=== PATIENT | female | born 1995 | race Caucasian/White ===

== ENCOUNTER 2020-10-01 18:38 | Emergency (ER) | payer OTHER ==
[2020-10-01] MEDS ORDERED: SODIUM CHLORIDE 0.9% 1,000 ML IV STA (18:47)
[2020-10-01 19:13] LABS: BASOPHILS # (AUTO) 0.1 10^3/uL (0.0-0.1); BASOPHILS % (AUTO) 0.7 %; EOSINOPHILS # (AUTO) 0.3 10^3/uL (0.0-0.7); EOSINOPHILS % (AUTO) 3.9 %; HGB - HEMOGLOBIN 12.1 g/dL (12.0-16.0); LYMPHOCYTES # (AUTO) 2.3 10^3/uL (1.5-3.5); LYMPHOCYTES % (AUTO) 26.4 %; MEAN CORPUSCULAR HEMOGLOBIN 30.2 pg (27.0-31.0); MEAN CORPUSCULAR HGB CONC 35.6 g/dL (32.0-36.0); MEAN CORPUSCULAR VOLUME 84.8 fL (81.0-99.0); MEAN PLATELET VOLUME 10.3 fL (7.9-10.8); MONOCYTES # (AUTO) 0.8 10^3/uL (0.0-1.0); MONOCYTES % (AUTO) 9.8 %; NEUTROPHILS # (AUTO) 5.1 10^3/uL (1.5-6.6); PLT - PLATELET COUNT 313 10^3/uL (130-450); RED BLOOD COUNT 4.01 10^6/uL (4.20-5.40); RED CELL DISTRIBUTION WIDTH 12.4 % (12.0-15.0); WHITE BLOOD COUNT 8.6 x10^3/uL (4.8-10.8)
[2020-10-01 19:23] LABS: INR 1.2 (0.8-1.2); PT - PROTHROMBIN TIME 12.8 secs (9.9-12.6)
[2020-10-01 19:29] LABS: ALBUMIN 4.5 g/dL (3.2-5.5); ALBUMIN/GLOBULIN RATIO 1.4 (1.0-2.2); BILIRUBIN,TOTAL 0.5 mg/dL (0.2-1.0); CALCIUM 9.6 mg/dL (8.5-10.3); CREATININE 0.7 mg/dL (0.4-1.0); POTASSIUM 3.8 mmol/L (3.5-5.0); TOTAL PROTEIN 7.7 g/dL (6.7-8.2)
[2020-10-01 19:31] LABS: PARTIAL THROMBOPLASTIN TIME 29.9 secs (24.9-33.3)
[2020-10-01 19:33] LABS: BILIRUBIN,URINE NEGATIVE (NEGATIVE); GLUCOSE, URINE (UA) NEGATIVE (NEGATIVE); KETONES,URINE (UA) NEGATIVE (NEGATIVE); LEUKOCYTE ESTERASE, URINE NEGATIVE (NEGATIVE); NITRITE,URINE NEGATIVE (NEGATIVE); OCCULT BLOOD,URINE LARGE (NEGATIVE); PH,URINE 8.5 PH (5.0-7.5); PROTEIN,URINE NEGATIVE (NEGATIVE); UROBILINOGEN,URINE 0.2 (NORMAL) E.U./dL (NORMAL)
[2020-10-01 19:34] LABS: CLARITY,URINE CLOUDY (CLEAR)
--- NOTE | 2020-10-01 19:36 | ED Physician Documentation ---
History of Present Illness - Stated complaint Stated Complaint: FEMALE ,NAUSEA - Chief complaint Chief Complaint: Abd Pain - History obtained from History obtained from: Patient - History of Present Illness Timing: How many days ago (3) Pain level max: 4 Pain level now: 3 - Additonal information Additional information: Patient is a 25-year-old female who presents to the emergency department with pelvic cramping and heavier menstrual flow than usual. She states she started her period about 3 days ago, but this has been heavier bleeding than she is used to. Nothing makes it better or worse. She is unsure if she could possibly be . She states her menses last month was normal. Is not on any me dications at home. Is not on control. Patient states that she felt lightheaded and dizzy earlier today. Review of Systems Constitutional: denies: Fever, Chills Cardiac: denies: Chest pain / pressure Respiratory: denies: Cough GI: denies: Nausea, Vomiting : denies: Dysuria, Frequency, Hesitancy, Now EGA Skin: denies: Rash Musculoskeletal: denies: Neck pain, Back pain Neurologic: denies: Headache PD PAST MEDICAL HISTORY - Past Medical History Past Medical History: No - Past Surgical History Past Surgical History: No - Allergies Allergies/Adverse Reactions: Allergies Allergy/AdvReac Type Severity Reaction Status Date / Time shellfish derived Allergy Itching Verified 10/01/20 18:46 - Living Situation Living Situation: reports: With family Living Arrangement: reports: At home - Social History Does the pt smoke?: No Smoking Status: Never smoker Does the pt drink ETOH?: No Does the pt have substance abuse?: No - Immunizations Immunizations are current?: Yes - POLST Patient has POLST: No PD ED PE NORMAL - Vitals Vital signs reviewed: Yes - General General: Alert and oriented X 3, No acute distress, Well developed/nourished - HEENT HEENT: PERRL, Moist mucous membranes - Neck Neck: Supple, no meningeal sign - Cardiac Cardiac: RRR, Strong equal pulses - Respiratory Respiratory: No respiratory distress, Clear bilaterally - Abdomen Abdomen: Soft, Non tender, Non distended - Female Female : Pt declined - Derm Derm: Warm and dry - Extremities Extremities: No edema, No calf tenderness / cord - Neuro Neuro: Alert and oriented X 3 - Psych Psych: Normal mood, Normal affect Results - Vitals Vitals: Vital Signs - 24 hr 10/01/20 10/01/20 10/01/20 18:40 18:45 21:02 Temperature 36.2 C L 36.5 C 37.7 C Heart Rate 107 H 107 H 81 Respiratory 24 24 16 Rate Blood Pressure 167/93 H 167/93 H 151/88 H O2 Saturation 98 98 99 Oxygen O2 Source Room air - Labs Labs: Laboratory Tests 10/01/20 10/01/20 10/01/20 15:50 19:06 19:06 WBC 8.6 RBC 4.01 L Hgb 12.1 Hct 34.0 L MCV 84.8 MCH 30.2 MCHC 35.6 RDW 12.4 Plt Count 313 MPV 10.3 Neut # (Auto) 5.1 Lymph # (Auto) 2.3 Stephenson # (Auto) 0.8 Eos # (Auto) 0.3 Baso # (Auto) 0.1 Absolute Nucleated RBC 0.00 Nucleated RBC % 0.0 PT INR APTT Sodium 141 Potassium 3.8 Chloride 108 Carbon Dioxide 25 Anion Gap 8.0 BUN 9 Creatinine 0.7 Estimated GFR (MDRD) 100 Glucose 102 H Calcium 9.6 Total Bilirubin 0.5 AST 27 ALT 45 Alkaline Phosphatase 38 L Total Protein 7.7 Albumin 4.5 Globulin 3.2 Albumin/Globulin Ratio 1.4 Lipase 27 HCG, Quant Urine Color STRAW Urine Clarity CLOUDY Urine pH 8.5 H Ur Specific [place] 1.015 Urine Protein NEGATIVE Urine Glucose (UA) NEGATIVE Urine Ketones NEGATIVE Urine Occult Blood LARGE H Urine Nitrite NEGATIVE Urine Bilirubin NEGATIVE Urine Urobilinogen 0.2 (NORMAL) Ur Leukocyte Esterase NEGATIVE Urine RBC 11-25 H Urine WBC 0-3 Ur Squamous Epith Cells NONE SEEN Amorphous Sediment Marked Urine Bacteria None Seen Ur Microscopic Review INDICATED Urine Culture Comments NOT INDICATED Blood Type Antibody Screen 10/01/20 10/01/20 10/01/20 19:06 19:06 19:06 WBC RBC Hgb Hct MCV MCH MCHC RDW Plt Count MPV Neut # (Auto) Lymph # (Auto) Stephenson # (Auto) Eos # (Auto) Baso # (Auto) Absolute Nucleated RBC Nucleated RBC % PT 12.8 H INR 1.2 APTT 29.9 Sodium Potassium Chloride Carbon Dioxide Anion Gap BUN Creatinine Estimated GFR (MDRD) Glucose Calcium Total Bilirubin AST ALT Alkaline Phosphatase Total Protein Albumin Globulin Albumin/Globulin Ratio Lipase HCG, Quant < 0.60 Urine Color Urine Clarity Urine pH Ur Specific [place] Urine Protein Urine Glucose (UA) Urine Ketones Urine Occult Blood Urine Nitrite Urine Bilirubin Urine Urobilinogen Ur Leukocyte Esterase Urine RBC Urine WBC Ur Squamous Epith Cells Amorphous Sediment Urine Bacteria Ur Microscopic Review Urine Culture Comments Blood Type A NEGATIVE Antibody Screen NEGATIVE - Rads (name of study) Pelvic ultrasound Radiology: Prelim report reviewed, EMP read contemporaneously, See rad report (Per the sonographers oral report, no acute abnormality, possible polycystic ovary disease.) PD MEDICAL DECISION MAKING - ED course Complexity details: reviewed results, re-evaluated patient, considered differential, d/w patient ED course: Patient with menorrhagia. No significant lab abnormalities. Bleeding decreased in the emergency department. Discussed treatment including oral contraceptive pills, tranexamic acid or watchful waiting. Patient states she does not want to be started on any medications. She will return if she worsens. She will follow up with gynecology on Saturday. Patient counseled regarding signs and symptoms for which I believe and urgent re-evaluation would be necessary. Patient with good understanding of and agreement to plan and is comfortable going home at this time This document was made in part using voice recognition software. While efforts are made to proofread this document, sound alike and grammatical errors may occur. Departure - Departure Disposition: 01 Home, Self Care Clinical Impression: Menorrhagia Qualifiers: Menorrhagia type: with regular cycle Qualified Code(s): N92.0 - Excessive and frequent menstruation with regular cycle Condition: Good Instructions: ED Bleeding Menstrual Heavy Follow-Up: [facility] [Provider Group] - Within 3 Days Comments: Follow-up with gynecology on Saturday or Saturday for repeat evaluation. Return if you worsen. We did discuss tranexamic acid and or oral contraceptive pills to help with the bleeding, you have declined this at this time. If the bleeding fails to improve, you are feeling more lightheaded or having worsening symptoms, please return for repeat evaluation. Discharge Date/Time: 10/01/20 21:28
[2020-10-01 19:40] LABS: SQUAMOUS EPITHELIAL CELL,UR NONE SEEN (<= Few); WBC,URINE 0-3 /HPF (0-5)
[2020-10-01 19:41] LABS: AMORPHOUS SEDIMENT,UR Marked /LPF; BACTERIA,URINE None Seen /HPF (None Seen)
[2020-10-01 21:02] VITALS: BP 151/88
--- NOTE | 2020-10-02 08:21 | Ultrasound Report ---
PROCEDURE: Pelvic w/Transvag+Doppler Comp INDICATIONS: pelvic pain, menorrhagia TECHNIQUE: Real-time scanning was performed of the pelvic organs, with image documentation. Additional endovagi nal scanning was necessary due to incomplete visualization of the adnexal and endometrial structures by transabdominal scanning. COMPARISON: None. FINDINGS: No pathologic free abdominal or pelvic fluid. Uterus: Uterus is normal in size at 7.3 x 3.8 x 4.3 cm. The endometrium measures 6.2 mm in combined thickness. Ovaries: Right ovary measures 3.6 x 2.2 x 2.0 cm. Left ovary measures 2.7 x 2.0 x 2.1 cm. There is b ilateral intraovarian intraovarian arterial and venous flow. Both ovaries have greater than 12 follic les. No abnormal adnexal masses. IMPRESSION: Unremarkable pelvic ultrasound. A preliminary report with the above findings was provided at the time of the study by [facility]. Reviewed by: Elliot Salgado MD on 10/02/2020 7:20 AM [facility] Approved by: Elliot Salgado MD on 10/02/2020 7:20 AM [facility] Station ID: [id number]
== END 2020-10-01 21:28 | disposition home or self-care (01) ==
LOC: ED 18:38
DX: N92.0 Excessive and frequent menstruation with regular cycle (principal)
CPT/HCPCS: 36415; 80053; 81001; 81003; 83690; 84702; 85025; 85610; 85730; 86850; 86900; 86901; 87086; 93975; 96360; 96361; 99284

== ENCOUNTER 2021-07-25 09:25 | Outpatient (CLI) | payer OTHER, BC ==
[2021-07-25 12:24] LABS: BASOPHILS # (AUTO) 0.1 10^3/uL (0.0-0.1); BASOPHILS % (AUTO) 1.1 %; EOSINOPHILS # (AUTO) 0.4 10^3/uL (0.0-0.7); EOSINOPHILS % (AUTO) 6.3 %; HCT - HEMATOCRIT 36.7 % (37.0-47.0); HGB - HEMOGLOBIN 12.8 g/dL (12.0-16.0); LYMPHOCYTES % (AUTO) 28.2 %; MEAN CORPUSCULAR HEMOGLOBIN 29.2 pg (27.0-31.0); MEAN CORPUSCULAR HGB CONC 34.9 g/dL (32.0-36.0); MEAN CORPUSCULAR VOLUME 83.8 fL (81.0-99.0); MEAN PLATELET VOLUME 10.8 fL (7.9-10.8); MONOCYTES # (AUTO) 0.5 10^3/uL (0.0-1.0); MONOCYTES % (AUTO) 7.1 %; PLT - PLATELET COUNT 298 10^3/uL (130-450); RED BLOOD COUNT 4.38 10^6/uL (4.20-5.40); RED CELL DISTRIBUTION WIDTH 12.3 % (12.0-15.0)
[2021-07-25 12:47] LABS: THYROID STIMULATING HORMONE 1.98 uIU/mL (0.34-5.60)
[2021-07-25 12:49] LABS: FREE T4 (FREE THYROXINE) 0.8 ng/dL (0.58-1.64)
[2021-07-25 12:51] LABS: ALBUMIN 4.8 g/dL (3.2-5.5); ALBUMIN/GLOBULIN RATIO 1.5 (1.0-2.2); ALKALINE PHOSPHATASE 32 IU/L (42-121); ALT ALANINE AMINOTRANSFERASE 54 IU/L (10-60); AST ASPARTATE AMINOTRANSFERASE 28 IU/L (10-42); BILIRUBIN,TOTAL 0.7 mg/dL (0.2-1.0); BUN - BLOOD UREA NITROGEN 12 mg/dL (6-20); CALCIUM 9.8 mg/dL (8.5-10.3); CARBON DIOXIDE - CO2 25 mmol/L (21-32); CHLORIDE 105 mmol/L (101-111); CHOL/HDL RATIO 4.6 (<4.4); CHOLESTEROL 169 mg/dL; CREATININE 0.8 mg/dL (0.4-1.0); GFR - MDRD 85 (>89); GLUCOSE 103 mg/dL (70-100); HDL CHOLESTEROL 37 mg/dL; LDL CHOLESTEROL,CALCULATED 104 mg/dL; LDL/HDL RATIO 2.8 (<4.4); POTASSIUM 4.3 mmol/L (3.5-5.0); SODIUM 140 mmol/L (135-145); TOTAL PROTEIN 7.9 g/dL (6.7-8.2); TRIGLYCERIDES 142 mg/dL; VLDL CHOLESTEROL 28 mg/dL
[2021-07-25 13:03] LABS: BILIRUBIN,URINE NEGATIVE (NEGATIVE); GLUCOSE, URINE (UA) NEGATIVE (NEGATIVE); KETONES,URINE (UA) NEGATIVE (NEGATIVE); LEUKOCYTE ESTERASE, URINE NEGATIVE (NEGATIVE); NITRITE,URINE NEGATIVE (NEGATIVE); OCCULT BLOOD,URINE NEGATIVE (NEGATIVE); PH,URINE 5.5 PH (5.0-7.5); PROTEIN,URINE NEGATIVE (NEGATIVE); UROBILINOGEN,URINE 0.2 (NORMAL) E.U./dL (NORMAL)
[2021-07-25 13:12] LABS: CLARITY,URINE CLEAR (CLEAR)
[2021-07-25 13:33] LABS: ESTIMATED AVERAGE GLUCOSE 111 mg/dL (70-100); HEMOGLOBIN A1c% 5.5 % (4.27-6.07)
[2021-07-25 13:37] LABS: BACTERIA,URINE Many /HPF (None Seen); MUCUS,URINE Marked Strands; RBC,URINE 0-5 /HPF (0-5); SQUAMOUS EPITHELIAL CELL,UR MANY Squamous (<= Few); WBC,URINE 0-3 /HPF (0-5)
== END 2021-07-25 09:26 | disposition home or self-care (01) ==
LOC: LAB.N 09:25
PROVIDERS: ATTEND Nurse Practitioner
DX: E04.9 Nontoxic goiter, unspecified (principal); Z13.220 Encounter for screening for lipoid disorders; E66.9 Obesity, unspecified
CPT/HCPCS: 36415; 80053; 80061; 81001; 83036; 83721; 84439; 84443; 85025; 87086

== ENCOUNTER 2021-08-03 15:52 | Outpatient (CLI) | payer BC, OTHER ==
--- NOTE | 2021-08-04 18:13 | Ultrasound Report ---
PROCEDURE: Head or Neck Soft Tissue INDICATIONS: ENLARGED THYROID TECHNIQUE: Real time scanning was performed of the neck region of interest, with image documentation . COMPARISON: None. FINDINGS: No soft tissue neck abnormality seen bilaterally There is air and measures 4.1 x 1.7 x 1.8 cm The left thyroid measures 4.6 x 1.3 x 1.6 cm Thyroid isthmus thickness: 3 mm No focal thyroid nodules are seen. IMPRESSION: Normal thyroid, without thyroid nodules. Reviewed by: Navid Pittman MD on 08/04/2021 5:12 PM [facility] Approved by: Navid Pittman MD on 08/04/2021 5:12 PM [facility] Station ID: [id number]
== END 2021-08-03 15:53 | disposition home or self-care (01) ==
LOC: DI 15:52
PROVIDERS: ATTEND Nurse Practitioner
DX: E04.9 Nontoxic goiter, unspecified (principal)

== ENCOUNTER 2021-08-10 08:00 | Outpatient (CLI) | payer BC, OTHER | END 2021-08-10 23:59 | disposition home or self-care (01) | LOC: LAB.N 08:00 | PROVIDERS: ATTEND Physician Assistant | DX: L71.0 Perioral dermatitis (principal) | CPT/HCPCS: 86694; 86695; 86696 ==

== ENCOUNTER 2021-09-05 10:58 | Outpatient (CLI) | payer BC, OTHER ==
[2021-09-05 17:57] LABS: BASOPHILS # (AUTO) 0.1 10^3/uL (0.0-0.1); BASOPHILS % (AUTO) 1.2 %; EOSINOPHILS # (AUTO) 0.5 10^3/uL (0.0-0.7); HCT - HEMATOCRIT 34.7 % (37.0-47.0); LYMPHOCYTES # (AUTO) 2.1 10^3/uL (1.5-3.5); LYMPHOCYTES % (AUTO) 31.7 %; MEAN CORPUSCULAR HEMOGLOBIN 29.6 pg (27.0-31.0); MEAN CORPUSCULAR HGB CONC 34.6 g/dL (32.0-36.0); MEAN CORPUSCULAR VOLUME 85.5 fL (81.0-99.0); MEAN PLATELET VOLUME 11.5 fL (7.9-10.8); MONOCYTES # (AUTO) 0.5 10^3/uL (0.0-1.0); NEUTROPHILS # (AUTO) 3.4 10^3/uL (1.5-6.6); NEUTROPHILS % (AUTO) 51.8 %; PLT - PLATELET COUNT 276 10^3/uL (130-450); RED BLOOD COUNT 4.06 10^6/uL (4.20-5.40); RED CELL DISTRIBUTION WIDTH 12.6 % (12.0-15.0); WHITE BLOOD COUNT 6.6 x10^3/uL (4.8-10.8)
== END 2021-09-05 10:59 | disposition home or self-care (01) ==
LOC: LAB.N 10:58
PROVIDERS: ATTEND Physician Assistant
DX: N94.6 Dysmenorrhea, unspecified (principal); R53.83 Other fatigue
CPT/HCPCS: 36415; 85025

== ENCOUNTER 2022-02-23 16:14 | Outpatient (CLI) | payer BC, OTHER ==
[2022-02-23 18:25] LABS: BILIRUBIN,URINE NEGATIVE (NEGATIVE); GLUCOSE, URINE (UA) NEGATIVE (NEGATIVE); KETONES,URINE (UA) NEGATIVE (NEGATIVE); LEUKOCYTE ESTERASE, URINE NEGATIVE (NEGATIVE); NITRITE,URINE NEGATIVE (NEGATIVE); OCCULT BLOOD,URINE SMALL (NEGATIVE); PROTEIN,URINE NEGATIVE (NEGATIVE); UROBILINOGEN,URINE 1 (NORMAL) E.U./dL (NORMAL)
[2022-02-23 18:33] LABS: BASOPHILS # (AUTO) 0.1 10^3/uL (0.0-0.1); BASOPHILS % (AUTO) 0.8 %; EOSINOPHILS # (AUTO) 0.4 10^3/uL (0.0-0.7); HCT - HEMATOCRIT 36.4 % (37.0-47.0); HGB - HEMOGLOBIN 12.4 g/dL (12.0-16.0); LYMPHOCYTES # (AUTO) 2.6 10^3/uL (1.5-3.5); LYMPHOCYTES % (AUTO) 34.8 %; MEAN CORPUSCULAR HEMOGLOBIN 29.1 pg (27.0-31.0); MEAN CORPUSCULAR HGB CONC 34.1 g/dL (32.0-36.0); MEAN CORPUSCULAR VOLUME 85.4 fL (81.0-99.0); MONOCYTES # (AUTO) 0.7 10^3/uL (0.0-1.0); MONOCYTES % (AUTO) 9.7 %; NEUTROPHILS # (AUTO) 3.6 10^3/uL (1.5-6.6); NEUTROPHILS % (AUTO) 49.4 %; PLT - PLATELET COUNT 297 10^3/uL (130-450); RED BLOOD COUNT 4.26 10^6/uL (4.20-5.40); RED CELL DISTRIBUTION WIDTH 12.2 % (12.0-15.0); WHITE BLOOD COUNT 7.4 x10^3/uL (4.8-10.8)
[2022-02-23 18:36] LABS: BACTERIA,URINE Rare /HPF (None Seen); CLARITY,URINE CLEAR (CLEAR); SQUAMOUS EPITHELIAL CELL,UR FEW Squamous (<= Few); WBC,URINE 0-3 /HPF (0-5)
[2022-02-23 18:46] LABS: ALBUMIN 4.3 g/dL (3.2-5.5); ALBUMIN/GLOBULIN RATIO 1.2 (1.0-2.2); BILIRUBIN,TOTAL 0.4 mg/dL (0.2-1.0); CALCIUM 9.7 mg/dL (8.5-10.3); CREATININE 0.7 mg/dL (0.4-1.0); POTASSIUM 3.8 mmol/L (3.5-5.0)
== END 2022-02-23 16:15 | disposition home or self-care (01) ==
LOC: LAB.N 16:14
PROVIDERS: ATTEND Nurse Practitioner
DX: R10.31 Right lower quadrant pain (principal); R10.13 Epigastric pain
CPT/HCPCS: 36415; 80053; 81001; 82150; 83690; 85025; 87086

== ENCOUNTER 2022-03-14 07:00 | Outpatient (CLI) | payer BC, OTHER ==
--- NOTE | 2022-03-14 13:07 | Ultrasound Report ---
PROCEDURE: Pelvic w/Transvaginal INDICATIONS: ABD PAIN. Right lower quadrant pain. Vaginal bleeding. TECHNIQUE: Real-time scanning was performed of the pelvic organs, with image documentation. Additional endovagi nal scanning was necessary due to incomplete visualization of the adnexal and endometrial structures by transabdominal scanning. COMPARISON: Pelvic ultrasound 10/01/2020. FINDINGS: Uterus: Uterus is anteverted and normal in size at 7.5 x 3.5 x 3.7 cm. The myometrium is homogeneou s. The endometrium measures 13 mm in combined thickness. No focal endometrial lesion or abnormal en dometrial vascularity visualized. Ovaries: The right ovary measures 2.7 x 2.6 x 2.5 cm, with a calculated ovarian volume of 9 cc. The left ovary measures 3.2 x 2.1 x 2.3 cm, with a calculated ovarian volume of 8 cc. Greater than 12 f ollicles can be seen in each ovary. No adnexal masses are seen. Other: No pathologic free abdominal or pelvic fluid. IMPRESSION: 1. Unremarkable sonographic appearance of the uterus. 2. Greater than 12 follicles visualized in each ovary, a finding that raises the possibility of polyc ystic morphology. 3. No adnexal mass visualized. Reviewed by: Joe Bain MD on 03/14/2022 12:06 PM [facility] Approved by: oJe Bain MD on 03/14/2022 12:06 PM [facility] Station ID: [id number]
--- NOTE | 2022-03-14 13:36 | Ultrasound Report ---
PROCEDURE: Abdomen Complete INDICATIONS: ABD PAIN TECHNIQUE: Real-time scanning was performed of the abdominal and retroperitoneal organs, with image documentatio n. COMPARISON: None. FINDINGS: Liver: Echogenic. Liver length of 17.7 cm. Gallbladder: No stones, wall thickening, or sonographic Zavala sign visualized. Biliary ducts: Intrahepatic bile ducts are non-dilated. Extrahepatic bile duct caliber measures 4 m m. Normal is 6-7 mm or less in diameter, or 10 mm or less post-cholecystectomy. Pancreas: Visualized portions of the pancreas are sonographically normal. Spleen: Spleen is normal in size and homogeneous in echotexture. Kidneys: Kidneys are normal in size and echotexture. Right kidney measures 12.0 cm long; left kidne y measures 11.6 cm long. No hydronephrosis or nephrolithiasis. No solid masses. Aorta: Visualized aorta is normal in caliber at less than 3 cm. Iliacs: Proximal common iliac arteries are normal in caliber at less than 2.5 cm. IVC: Intrahepatic inferior vena cava is patent. Miscellaneous: No free abdominal fluid. IMPRESSION: 1. The liver is echogenic, a nonspecific finding commonly seen in the setting of steatosis. 2. No cholelithiasis or evidence of acute cholecystitis. Reviewed by: Joe Bain MD on 03/14/2022 12:35 PM [facility] Approved by: Joe Bain MD on 03/14/2022 12:35 PM [facility] Station ID: [id number]
== END 2022-03-14 07:01 | disposition home or self-care (01) ==
LOC: DI 07:00
PROVIDERS: ATTEND Nurse Practitioner
DX: R10.13 Epigastric pain (principal); R10.31 Right lower quadrant pain

== ENCOUNTER 2022-05-24 14:43 | Outpatient (CLI) | payer BC, OTHER ==
--- NOTE | 2022-05-24 17:27 | Ultrasound Report ---
PROCEDURE: Retroperitoneal INDICATIONS: NEPHROLITHIASIS TECHNIQUE: Real-time scanning was performed of the retroperitoneal organs, with image documentation. COMPARISON: None. FINDINGS: Kidneys: Kidneys are normal in size. Right kidney measures 11.8 cm long; left kidney measures 12.7 cm long. Right renal cortical thickness is 1.9 cm; left renal cortical thickness is 1.8 cm. No trupti d masses, hydronephrosis, or nephrolithiasis. Bladder: Pre-void bladder volume is 342 mL. Post-void residual is 34 mL. Pre-void images demonstra te no intraluminal masses or stones. On pre-void images, bilateral ureteral jets are noted with colo r Doppler interrogation. (Of note, ureteral jets may not be detectable in up to 25% of cases due to insufficient differences in specific gravity between ureteral and bladder urine). Miscellaneous: No free abdominal fluid. IMPRESSION: No hydronephrosis. Reviewed by: Martín Donahue MD on 05/24/2022 4:48 PM PST Approved by: Martín Donahue MD on 05/24/2022 4:48 PM PST Station ID: [id number]
== END 2022-05-24 14:44 | disposition home or self-care (01) ==
LOC: DI 14:43
PROVIDERS: ATTEND Physician Assistant
DX: N20.0 Calculus of kidney (principal)

== ENCOUNTER 2023-03-06 15:41 | Outpatient (CLI) | payer BC, OTHER | END 2023-03-06 15:42 | disposition home or self-care (01) | LOC: LAB 15:41 | PROVIDERS: ATTEND Student in an Organized Health Care Education/Training Program | DX: O20.9 Hemorrhage in early pregnancy, unspecified (principal) | CPT/HCPCS: 36415; 84702 ==